=== PATIENT | female | born 1975 | race Caucasian/White ===

== ENCOUNTER 2024-02-22 09:41 | Emergency (ER) | payer OTHER ==
[~2024-02-22] VITALS: Ht 162.6 cm; Wt 50.0 kg
[2024-02-22 09:48] VITALS: BP 119/78; PULSE 81; RESP 16; TEMP 98.6; O2SAT 98
== END 2024-02-22 15:33 | disposition home or self-care (01) ==
LOC: ER 09:41
DX: Z02.79 Encounter for issue of other medical certificate (principal)
CPT/HCPCS: 99283